=== PATIENT | female | born 1950 | race Two or more races ===

== ENCOUNTER 2024-03-22 12:54 | Inpatient (IN) | payer OTHER, MEDICAID ==
[~2024-03-22] VITALS: Ht 157.5 cm; Wt 78.2 kg
[2024-03-22 14:01] LABS: Basophils # (auto) 0 10 ^3/uL (0-0.2); Basophils % (auto) 1.1 % (0.0-2.0); Eosinophils # (auto) 0.3 10 ^3/uL (0-0.8); Eosinophils % (auto) 8.2 % (0.0-7.0); Hematocrit 34.4 % (36.0-46.0); Hemoglobin 11.7 g/dL (12.2-16.2); Lymphocytes # (auto) 1.4 10 ^3/uL (0.4-5.4); Lymphocytes % (auto) 43.9 % (10.0-50.0); Mean Corpuscular Hemoglobin 34.1 pg (28.0-32.0); Mean Corpuscular Hgb Conc. 34.1 g/dL (32.0-36.0); Mean Corpuscular Volume 99.9 fL (80.0-100.0); Monocytes # (auto) 0.4 10 ^3/uL (0-1.3); Monocytes % (auto) 13.4 % (0.0-12.0); Neutrophils # (auto) 1.1 10 ^3/uL (1.6-8.6); Neutrophils % (auto) 33.4 % (37.0-80.0); Nucleated Red Blood Cells % 0.1 %; Red Blood Cells 3.45 10^6/uL (4.0-5.20); White Blood Cell 3.3 10^3/uL (4.4-10.8)
[2024-03-22 14:20] LABS: Alanine Aminotransferase 17 U/L (7-40); Albumin 3.5 g/dL (3.2-4.8); Alkaline Phosphatase 92 U/L (46-116); Anion Gap 7 (5-15); Aspartate Aminotransferase 23 U/L (13-40); BUN/Creatinine Ratio 12.2 (10.0-20.0); Blood Urea Nitrogen 9 mg/dL (9-23); Calcium 8.7 mg/dL (8.7-10.4); Carbon Dioxide 23 mmol/L (20-30); Chloride 114 mmol/L (98-107); Glucose 103 mg/dL (74-106); INR 1.12 (0.9-1.15); Partial Thromboplastin Time 29.6 SEC (24.5-34.5); Potassium 3.6 mmol/L (3.5-5.1); Prothrombin Time 11.8 sec (9.3-11.8); Sodium 144 mmol/L (136-145)
[2024-03-22 14:21] LABS: Bilirubin, Total 0.4 mg/dL (0.2-1.0); Total Protein 5.9 g/dL (5.7-8.2)
[2024-03-22] MEDS ORDERED: ONDANSETRON HCL 4 MG/2 ML VIAL IV PRN (17:00)
[2024-03-22] MEDS ORDERED: DOCUSATE SOD 100 MG CAP PO PRN (17:00)
[2024-03-22 17:04] VITALS: PULSE 56; RESP 16; O2SAT 99
[2024-03-22] MEDS: HYDROcodone-ACET 5/325MG TAB PO PRN (17:59)
[2024-03-22] MEDS: HEPARIN DRIP/D5W 100UNITS/ML 250 ML IV SCH (18:33)
[2024-03-22 18:41] LABS: Urine Bacteria None Seen /hpf (None Seen)
[2024-03-22 18:44] VITALS: PULSE 54; RESP 60; O2SAT 98
[2024-03-22] MEDS: CLOPIDOGREL BISULFATE 75 MG TAB PO ONE (18:54)
[2024-03-22 18:57] LABS: Urine Blood Negative /uL (Negative); Urine Clarity Clear (Clear); Urine Color Yellow (Yellow); Urine Mucus FEW (None Seen); Urine Protein, UAD TRACE (Negative); Urine Specific Gravity 1.028 (1.001-1.035); Urine Urobilinogen Normal (Negative); Urine WBC 4 /hpf (0 - 5); Urine pH 7.5 (5.0-9.0)
[2024-03-22 19:12] LABS: Basophils # (auto) 0 10 ^3/uL (0-0.2); Eosinophils # (auto) 0.3 10 ^3/uL (0-0.8); Hemoglobin 12.6 g/dL (12.2-16.2); Monocytes # (auto) 0.4 10 ^3/uL (0-1.3)
[2024-03-22 19:14] LABS: Eosinophils % (auto) 7.4 % (0.0-7.0); Lymphocytes % (auto) 54.7 % (10.0-50.0); Mean Corpuscular Hemoglobin 34.5 pg (28.0-32.0); Mean Corpuscular Hgb Conc. 34.1 g/dL (32.0-36.0); Mean Corpuscular Volume 101.2 fL (80.0-100.0); Monocytes % (auto) 10.8 % (0.0-12.0); Neutrophils % (auto) 26.1 % (37.0-80.0); Nucleated Red Blood Cells % 0.3 %; Red Blood Cells 3.66 10^6/uL (4.0-5.20); White Blood Cell 3.7 10^3/uL (4.4-10.8)
[2024-03-22 19:30] VITALS: PULSE 58; RESP 13; O2SAT 97
[2024-03-22 22:29] VITALS: RESP 18; O2SAT 96
[2024-03-22] MEDS: SODIUM CHLOR 0.9% PF (SALINE LOCK) 10ML VIAL/SYR IV SCH (22:40)
[2024-03-22 23:30] VITALS: BP 151/72; PULSE 66; RESP 17; TEMP 98.6; O2SAT 98
[2024-03-23] VITALS (9 sets, daily range): BP systolic 99–121; BP diastolic 40–78; PULSE 53–70; RESP 15–20; TEMP 97–98.7; O2SAT 95–100
[2024-03-23] MEDS: ASPirin-EC 81 mg tab PO SCH (08:35)
[2024-03-23] MEDS: HYDROmorphone HCL 2 MG/ML VL/or syr IV PRN (08:38)
[2024-03-23] MEDS ORDERED: ENOXAPARIN SOD 40 MG/0.4 ML SYRINGE SC SCH (10:00)
[2024-03-23] MEDS ORDERED: PHEN1CAP38 PO (11:32)
[2024-03-23] MEDS ORDERED: KEP500T PO (11:32)
[2024-03-23] MEDS ORDERED: SIMV20TA20 PO (11:32)
[2024-03-23] MEDS ORDERED: ACET-1881 PO (11:32)
[2024-03-23] MEDS ORDERED: TOPI25CA5 PO (11:32)
[2024-03-23] MEDS ORDERED: CHOL20007 OR (11:32)
[2024-03-23] MEDS ORDERED: IBUP-1456 PO (11:32)
[2024-03-23] MEDS ORDERED: DICL1GEL72 EX (11:32)
[2024-03-23] MEDS ORDERED: GABA-339 PO (11:32)
[2024-03-23] MEDS ORDERED: APIX2.5T PO ×2 (11:32→11:42)
[2024-03-23] MEDS ORDERED: ACETAMINOPHEN 325 MG TAB PO PRN (12:00)
[2024-03-23] MEDS ORDERED: ERGOCALCIFEROL 50,000 UNIT(1.25MG) CAP PO SCH (15:00)
[2024-03-23] MEDS: ATORVASTATIN 20 MG TAB PO SCH (22:00)
[2024-03-23] MEDS: TOPIRAMATE 25 MG TAB PO SCH (22:02)
[2024-03-23] MEDS: APIXABAN 2.5 MG TAB PO SCH (22:02)
[2024-03-23] MEDS: levETIRAcetam 500 MG TAB PO SCH (22:03)
[2024-03-24 01:00] VITALS: BP 101/42; PULSE 73; RESP 20; TEMP 98; O2SAT 95
[2024-03-24 05:00] VITALS: BP 81/62; PULSE 60; RESP 22; TEMP 97.6; O2SAT 100
[2024-03-24] MEDS: GABAPENTIN 300 MG CAP PO SCH (08:28)
[2024-03-24] MEDS: PHENYTOIN SODIUM 100 MG CAP PO SCH (08:29)
[2024-03-24 09:29] VITALS: BP 144/72; PULSE 61; RESP 20; TEMP 97.9; O2SAT 98
[2024-03-24 13:01] VITALS: BP 117/59; PULSE 58; RESP 20; TEMP 98.3; O2SAT 94
[2024-03-24 16:38] VITALS: BP 123/68; PULSE 63; RESP 18; TEMP 98.3; O2SAT 96
[2024-03-24 21:00] VITALS: BP 119/62; PULSE 58; RESP 18; TEMP 97.4; O2SAT 95
[2024-03-25 05:00] VITALS: BP 100/52; PULSE 57; RESP 16; TEMP 97.7; O2SAT 93
[2024-03-25 08:28] VITALS: BP_SYST 105; BP_SYST 97; BP_DIAS 31; BP_DIAS 54; PULSE 57; RESP 20; TEMP 98.3; O2SAT 95
[2024-03-25 12:36] VITALS: BP 128/63; PULSE 58; RESP 20; TEMP 98; O2SAT 98
[2024-03-25 17:08] VITALS: BP 123/67; PULSE 67; RESP 20; TEMP 98.2; O2SAT 96
[2024-03-25 20:00] VITALS: O2SAT 97
[2024-03-25 21:00] VITALS: BP 109/57; PULSE 66; RESP 17; TEMP 97.6; O2SAT 97
[2024-03-26 01:00] VITALS: BP 127/50; PULSE 69; RESP 18; TEMP 97.7; O2SAT 98
[2024-03-26 05:00] VITALS: BP 103/49; PULSE 65; RESP 16; TEMP 98; O2SAT 96
[2024-03-26 09:00] VITALS: BP 118/52; PULSE 69; RESP 18; TEMP 97.5; O2SAT 98
[2024-03-26 10:24] LABS: Basophils # (auto) 0 10 ^3/uL (0-0.2); Eosinophils # (auto) 0.2 10 ^3/uL (0-0.8); Hemoglobin 12.7 g/dL (12.2-16.2); Lymphocytes # (auto) 1.4 10 ^3/uL (0.4-5.4); Lymphocytes % (auto) 33.8 % (10.0-50.0)
[2024-03-26 10:27] LABS: Basophils % (auto) 0.5 % (0.0-2.0); Eosinophils % (auto) 4.9 % (0.0-7.0); Hematocrit 37.1 % (36.0-46.0); Mean Corpuscular Hemoglobin 34.6 pg (28.0-32.0); Mean Corpuscular Hgb Conc. 34.2 g/dL (32.0-36.0); Mean Corpuscular Volume 101.2 fL (80.0-100.0); Monocytes # (auto) 0.5 10 ^3/uL (0-1.3); Monocytes % (auto) 12.8 % (0.0-12.0); Nucleated Red Blood Cells % 0.1 %; Red Blood Cells 3.67 10^6/uL (4.0-5.20); White Blood Cell 4.2 10^3/uL (4.4-10.8)
[2024-03-26 10:38] LABS: Anion Gap 6 (5-15); Carbon Dioxide 26 mmol/L (20-30); Chloride 111 mmol/L (98-107); Potassium 3.9 mmol/L (3.5-5.1); Sodium 143 mmol/L (136-145)
[2024-03-26 10:39] LABS: Calcium 8.8 mg/dL (8.7-10.4)
[2024-03-26 10:44] LABS: Blood Urea Nitrogen 8 mg/dL (9-23); Glucose 134 mg/dL (74-106)
[2024-03-26 13:00] VITALS: BP 127/66; PULSE 65; RESP 18; TEMP 97.9; O2SAT 98
[2024-03-26 16:32] VITALS: TEMP 36.6
[2024-03-26 16:56] VITALS: TEMP 98
[2024-03-26] MEDS: ACETAMINOPHEN 325 MG TAB PO PRN (16:56)
== END 2024-03-26 17:23 | disposition home health service (06) | DRG 300 ==
LOC: EDBD 12:54 → ER 12:54 → WEST WING 16:52 → OVERFLOW 16:52 → WEST WING 22:06
PROVIDERS: ADMIT Internal Medicine; ATTEND Family Medicine
DX: I73.9 Peripheral vascular disease, unspecified (principal); D61.818 Other pancytopenia; G40.909 Epilepsy, unspecified, not intractable, without status epilepticus; Z88.0 Allergy status to penicillin; Z86.718 Personal history of other venous thrombosis and embolism
CPT/HCPCS: 36415; 73590; 80048; 80053; 80185; 81001; 83880; 85025; 85610; 85730; 93925; 93970; 97110; 97116; 97163; G0378; J2405

== ENCOUNTER 2024-05-02 08:28 | Emergency (ER) | payer OTHER, MEDICAID ==
[~2024-05-02] VITALS: Ht 152.4 cm; Wt 74.9 kg
[~2024-05-02 08:28] MED LIST: ACET-1881 PO; APIX2.5T PO; CHOL20007 OR; DICL1GEL72 EX; GABA-339 PO; IBUP-1456 PO; KEP500T PO; PHEN1CAP38 PO; SIMV20TA20 PO; TOPI25CA5 PO
[2024-05-02 09:46] VITALS: BP 99/68; PULSE 66; RESP 16; TEMP 97.4; O2SAT 96
[2024-05-02] MEDS: diphenhdrAMINE HCL 25 MG CAP PO ONE (10:21)
[2024-05-02] MEDS ORDERED: CEPH500C PO (10:45)
== END 2024-05-02 11:00 | disposition home or self-care (01) ==
LOC: ER 08:28
DX: L03.115 Cellulitis of right lower limb (principal); G40.909 Epilepsy, unspecified, not intractable, without status epilepticus; E78.5 Hyperlipidemia, unspecified; Z88.0 Allergy status to penicillin; Z79.899 Other long term (current) drug therapy
CPT/HCPCS: 93971

== ENCOUNTER 2024-05-25 13:39 | Inpatient (IN) | payer OTHER, MEDICAID ==
[~2024-05-25] VITALS: Ht 154.9 cm; Wt 75.0 kg
[~2024-05-25 13:39] MED LIST changes: +CEPH500C PO
[2024-05-25 16:26] LABS: Basophils # (auto) 0 10 ^3/uL (0-0.2); Eosinophils # (auto) 0.3 10 ^3/uL (0-0.8); Mean Corpuscular Hgb Conc. 33.6 g/dL (32.0-36.0); Monocytes # (auto) 0.6 10 ^3/uL (0-1.3); Neutrophils # (auto) 1.4 10 ^3/uL (1.6-8.6)
[2024-05-25 16:28] LABS: Eosinophils % (auto) 6.8 % (0.0-7.0); Hemoglobin 13.1 g/dL (12.2-16.2); Lymphocytes % (auto) 46.8 % (10.0-50.0); Mean Corpuscular Hemoglobin 34.9 pg (28.0-32.0); Mean Corpuscular Volume 103.7 fL (80.0-100.0); Monocytes % (auto) 13.1 % (0.0-12.0); Neutrophils % (auto) 32.3 % (37.0-80.0); Nucleated Red Blood Cells % 0.1 %; Platelet Count (auto) 168 10^3/uL (140-450); Red Blood Cells 3.76 10^6/uL (4.0-5.20); Red Cell Distribution Width 14.3 % (11.8-14.3); White Blood Cell 4.2 10^3/uL (4.4-10.8)
[2024-05-25 16:32] LABS: Urine Bacteria None Seen /hpf (None Seen)
[2024-05-25 16:43] LABS: Chloride 111 mmol/L (98-107); Potassium 3.4 mmol/L (3.5-5.1); Sodium 142 mmol/L (136-145)
[2024-05-25 16:44] LABS: Anion Gap 8 (5-15); Carbon Dioxide 23 mmol/L (20-31)
[2024-05-25 16:50] LABS: BUN/Creatinine Ratio 11.8 (10.0-20.0); Blood Urea Nitrogen 9 mg/dL (9-23); Glucose 89 mg/dL (74-106)
[2024-05-25 17:18] LABS: Urine Blood Negative /uL (Negative); Urine Clarity Clear (Clear); Urine Color Yellow (Yellow); Urine Mucus FEW (None Seen); Urine Protein, UAD Negative (Negative); Urine Specific Gravity 1.022 (1.001-1.035); Urine Urobilinogen Normal (Negative); Urine WBC 1 /hpf (0 - 5); Urine pH 5.5 (5.0-9.0)
[2024-05-25 20:19] VITALS: PULSE 68; RESP 16; O2SAT 99
[2024-05-25] MEDS: cefTRIAXone 1GM/50ML D5W 50 ML IV ONE (21:00)
[2024-05-25] MEDS: CLINDAMYCIN 600MG IV 50 ML IV ONE (21:47)
[2024-05-25 23:57] VITALS: PULSE 65; RESP 11; O2SAT 98
[2024-05-26] MEDS: POTASSIUM CHL 20 Meq TABLET PO ONE (02:32)
[2024-05-26 03:09] LABS: Basophils # (auto) 0 10 ^3/uL (0-0.2); Basophils % (auto) 1.1 % (0.0-2.0); Eosinophils # (auto) 0.3 10 ^3/uL (0-0.8); Lymphocytes # (auto) 1.8 10 ^3/uL (0.4-5.4); Monocytes # (auto) 0.5 10 ^3/uL (0-1.3); Neutrophils # (auto) 1.1 10 ^3/uL (1.6-8.6); White Blood Cell 3.7 10^3/uL (4.4-10.8)
[2024-05-26 03:11] LABS: Eosinophils % (auto) 7.4 % (0.0-7.0); Hematocrit 34.9 % (36.0-46.0); Lymphocytes % (auto) 49.8 % (10.0-50.0); Mean Corpuscular Hemoglobin 35.3 pg (28.0-32.0); Mean Corpuscular Hgb Conc. 34.4 g/dL (32.0-36.0); Mean Corpuscular Volume 102.6 fL (80.0-100.0); Neutrophils % (auto) 28.7 % (37.0-80.0); Nucleated Red Blood Cells % 0.2 %; Platelet Count (auto) 144 10^3/uL (140-450); Red Cell Distribution Width 14.2 % (11.8-14.3)
[2024-05-26] MEDS ORDERED: CLINDAMYCIN 600MG IV 50 ML IV ONE (03:30)
[2024-05-26 03:56] LABS: Alanine Aminotransferase 14 U/L (7-40); Albumin 3.5 g/dL (3.2-4.8); Alkaline Phosphatase 106 U/L (46-116); Anion Gap 3 (5-15); Aspartate Aminotransferase 26 U/L (13-40); BUN/Creatinine Ratio 11.3 (10.0-20.0); Blood Urea Nitrogen 8 mg/dL (9-23); Calcium 8.9 mg/dL (8.7-10.4); Carbon Dioxide 25 mmol/L (20-31); Chloride 113 mmol/L (98-107); Glucose 85 mg/dL (74-106); Potassium 3.3 mmol/L (3.5-5.1); Sodium 141 mmol/L (136-145)
[2024-05-26 03:57] LABS: Total Protein 6.2 g/dL (5.7-8.2)
[2024-05-26 04:13] LABS: Bilirubin, Total 0.6 mg/dL (0.2-1.0)
[2024-05-26] MEDS: CLINDAMYCIN 300MG IV 50 ML IV ONE (06:15)
[2024-05-26] MEDS ORDERED: LEVE750T3 PO (06:20)
[2024-05-26] MEDS ORDERED: GABA-1250 PO (06:20)
[2024-05-26] MEDS ORDERED: TOPI25TA84 PO (06:20)
[2024-05-26] MEDS: cefTRIAXone 1GM/50ML D5W 50 ML IV ONE (06:35)
[2024-05-26] MEDS: APIXABAN 2.5 MG TAB PO SCH (10:11)
[2024-05-26] MEDS: TOPIRAMATE 25 MG TAB PO SCH (10:11)
[2024-05-26] MEDS: levETIRAcetam 500 MG TAB PO SCH (10:11)
[2024-05-26 12:46] VITALS: PULSE 65; RESP 16; O2SAT 96
[2024-05-26 13:00] VITALS: BP 133/61; PULSE 59; RESP 20; TEMP 98.7; O2SAT 93
[2024-05-26 13:59] VITALS: BP 122/57; PULSE 65; RESP 16; TEMP 97.7; O2SAT 96
[2024-05-26] MEDS: CLINDAMYCIN 600MG IV 50 ML IV ONE (15:53)
[2024-05-26 17:00] VITALS: BP 97/59; PULSE 66; RESP 14; TEMP 97.5; O2SAT 97
[2024-05-26 21:00] VITALS: BP 141/69; PULSE 72; RESP 18; TEMP 97.5; O2SAT 95
[2024-05-26] MEDS: CLINDAMYCIN 600MG IV 50 ML IV SCH (21:44)
[2024-05-27] VITALS (7 sets, daily range): BP systolic 105–129; BP diastolic 46–67; PULSE 65–70; RESP 15–18; TEMP 97.7–98.8; O2SAT 94–96
[2024-05-27] MEDS: levETIRAcetam 500 MG TAB PO SCH (10:32)
[2024-05-27] MEDS: POTASSIUM EFFERVESENT TAB 25 MEQ PO ONE (14:22)
[2024-05-27] MEDS: HYDROcodone-ACET 5/325MG TAB PO PRN (17:43)
[2024-05-28 01:02] VITALS: BP 120/79; PULSE 65; RESP 18; TEMP 98.6; O2SAT 97
[2024-05-28 05:00] VITALS: BP 124/59; PULSE 64; RESP 18; TEMP 97.8; O2SAT 95
[2024-05-28 08:00] VITALS: BP 122/70; PULSE 71; PULSE 78; RESP 16; RESP 20; TEMP 97.9; O2SAT 94; O2SAT 95
[2024-05-28] MEDS ORDERED: HYDR-4902 PO (11:10)
[2024-05-28] MEDS ORDERED: CLIN1CAP70 PO (11:10)
[2024-05-28 12:00] VITALS: BP 107/70; PULSE 64; RESP 20; TEMP 97.7; O2SAT 98
== END 2024-05-28 13:50 | disposition home or self-care (01) | DRG 603 ==
LOC: ER 13:39 → OVERFLOW 05-26 02:17 → WEST WING 05-26 11:45
PROVIDERS: ADMIT Internal Medicine; ATTEND Family Medicine
DX: L03.115 Cellulitis of right lower limb (principal); Z68.41 Body mass index [BMI] 40.0-44.9, adult; F41.9 Anxiety disorder, unspecified; I50.9 Heart failure, unspecified; E66.01 Morbid (severe) obesity due to excess calories; R56.9 Unspecified convulsions; E87.6 Hypokalemia; Z79.01 Long term (current) use of anticoagulants; Z79.899 Other long term (current) drug therapy
CPT/HCPCS: 36415; 73560; 73700; 80048; 80053; 81001; 82306; 82607; 83605; 83880; 84443; 85025; 93971; G0378; J3490

== ENCOUNTER 2024-07-31 09:29 | Emergency (ER) | payer OTHER, MEDICAID ==
[~2024-07-31] VITALS: Ht 154.9 cm; Wt 73.5 kg
[~2024-07-31 09:29] MED LIST changes: -APIX2.5T PO; -CEPH500C PO; +CLIN1CAP70 PO; +GABA-1250 PO; -GABA-339 PO; +HYDR-4902 PO; -KEP500T PO; +LEVE750T3 PO; -SIMV20TA20 PO; -TOPI25CA5 PO; +TOPI25TA84 PO
--- NOTE | 2024-07-31 09:54 | ED.PDOC ---
History of Present Illness HPI Comments This is a 73-year-old female who comes in with chief complaint of abdominal pain. The patient was also complaining of some dysuria as well as some mild nausea. The patient denies any fever or chills. She states that she has never had similar symptoms in the past. She denies any hematuria at this time. The patient was able to ambulate into the emergency department's without any difficulty. Chief Complaint: Abdominal Pain Time Seen by MD: 09:44 Primary Care Provider: [place] Reviewed Notes: Nurses Notes, Medications, Allergies (Allergies listed above) Allergies: Coded Allergies: Penicillins (Verified Allergy, Severe, RASH, 03/23/24) Simvastatin (Verified Allergy, Intermediate, URTICARIA, HIVES, INSOMNIA, 05/26/24) Home Meds Active Scripts Ondansetron Odt 4MG Tab (ZOFRAN PO) 4 Mg Tb, 4 MG PO Q8HP PRN for 5 Days, #15 TAB ODT TAB-DISSOLVE IN MOUTH, THEN SWALLOW Prov:ROSA ISELA BEDOYA MD 07/31/24 Nitrofurantoin Monohydrate Mac (Macrobid) 100 Mg Cap, 100 MG PO BID for 7 Days, #14 CAP Prov:ROSA ISELA BEDOYA MD 07/31/24 Hydrocodone-Acetaminophen (Hydrocodone Bitartrate/AC 5-325 mg) 1 Tab Tab, 1 TAB PO QID PRN, #30 TAB Prov:ERIK MEADOWS MD 05/28/24 Clindamycin Hcl (Clindamycin Hcl) 300 Mg Cap, 1 CAP PO TID, #30 CAP Prov:ERIK MEADOWS MD 05/28/24 Reported Medications Gabapentin (Gabapentin) 300 Mg Cap, PO for NUEROPATHY 05/26/24 Topiramate (Topiramate) 25 Mg Tab, 1 TAB PO BID for EPILEPSY 05/26/24 Levetiracetam (Levetiracetam) 750 Mg Tab, 2 TAB PO BID for EPILEPSY 05/26/24 Diclofenac Sodium (Topical) (Arthritis Pain Reliever) 1 % Gel, 1 % EX BIDP, GEL 03/23/24 Ibuprofen (Ibuprofen) 800 Mg Tab, 800 MG PO TIDPRN for PAIN, MG 03/23/24 Acetaminophen (Acetaminophen) 325 Mg Tab, 650 MG PO Q4HPRN PRN for MILD PAIN for 30 Days, MG 0 Refills 03/23/24 Cholecalciferol (VITAMIN D3) 2,000 Unit Tab, 39087 UNIT OR QWEEKLY, TAB 03/23/24 Phenytoin Sodium (DILANTIN CAPSULE) 100 Mg Cp, 200 MG PO for EPILEPSY, CAP 03/23/24 Information Source: Patient Mode of Arrival: Ambulatory Severity: Mild Timing: Days Duration: Since onset Prehospital treatment: None Location: Lower abdominal pain with the nausea and dysuria Associated signs and symptoms The patient denies any fever or chills Past Medical History PAST MEDICAL HISTORY: High Lipids, Seizures Past Medical History (Other): Right DVT Surgical History (Other): Right leg procedure NEON GLASS BLOWER History: Denies all NEON GLASS BLOWER Hx Family History Family History: Reviewed,noncontributory to illness Social History Smoker: Non-Smoker Alcohol: Denies ETOH Use Drugs: Denies Drug Use Lives In: Home Constitutional: denies: chills, diaphoresis, fatigue, fever, malaise, sweats, weakness, others EENTM: denies: blurred vision, double vision, ear bleeding, ear discharge, ear drainage, ear pain, ear ringing, eye pain, eye redness, hearing loss, mouth pain, mouth swelling, nasal discharge, nose bleeding, nose congestion, nose pain, photophobia, tearing, throat pain, throat swelling, voice changes, others Respiratory: denies: cough, hemoptysis, orthopnea, SOB at rest, shortness of breath, SOB with excertion, stridor, wheezing, others Cardiovascular: denies: chest pain, dizzy spells, diaphoresis, Dyspnea on exertion, edema, irregular heart beat, left arm pain, lightheadedness, palpitations, PND, syncope, others Gastrointestinal: reports: abdominal pain, nausea; denies: abdomen distended, blood streaked bowels, constipated, diarrhea, dysphagia, difficulty swallowing, hematemesis, melena, poor appetite, poor fluid intake, rectal bleeding, rectal pain, vomiting, others Genitourinary: reports: dysuria; denies: abnormal vagina bleeding, burning, dyspareunia, flank pain, frequency, hematuria, incontinence, pain, , vagina discharge, urgency, others Neurological: denies: dizziness, fainting, headache, left sided numbness, left sided weakness, numbness, paresthesia, pre-existing deficit, right sided numbness, right sided weakness, seizure, speech problems, tingling, tremors, weakness, others Musculoskeletal: denies: back pain, gout, joint pain, joint swelling, muscle pain, muscle stiffness, neck pain, others Integumetry: denies: bruises, change in color, change in hair/nails, dryness, laceration, lesions, lumps, rash, wounds, others Allergic/Immunocompromised: denies: Difficulty Healing, Frequent Infections, Hives, Itching, others Hematologic/Lymphatic: denies: anemia, blood clots, easy bleeding, easy bruising, swollen glands, others Endocrine: denies: excessive hunger, excessive sweating, excessive thirst, excessive urination, flushing, intolerance to cold, intolerance to heat, unexplained weight gain, unexplained weight loss, others Psychiatric: denies: anxiety, bipolar disorder, depression, hopeless, panic disorder, schizophrenia, sleepless, suicidal, others Physical Exam General Appearance: No Apparent Distress HEENT: Normal ENT Inspection, Pharynx Normal, TMs Normal Neck: Full Range of Motion, Non-Tender, Normal, Normal Inspection Respiratory: Chest Non-Tender, Lungs Clear, No Accessory Muscle Use, No Respiratory Distress, Normal Breath Sounds Cardiovascular: No Edema, No JVD, No Murmur, No Gallop, Normal Peripheral Pulses, Regular Rate/Rhythm Breast Exam: Deferred Gastrointestinal: No Organomegaly, No Pulsatile Mass, Normal Bowel Sounds, Soft, Suprapubic, Tenderness Genitalia: Deferred Pelvic: Deferred Rectal: Deferred Extremities: No calf tenderness, Normal capillary refill, Normal inspection, Normal range of motion, Non-tender, No pedal edema Musculoskeletal : Apperance: Normal Neurologic: Alert, drilling fluids specialist II-XII nml as Tested, No Motor Deficits, Normal Affect, Normal Mood, No Sensory Deficits Cerebellar Function: Normal Reflexes: Normal Skin: Dry, Normal Color, Warm Lymphatic: No Adenopathy Was a procedure done? Was a procedure done?: No Differential Dx Considerations may include: Sepsis, UTI, kidney stones X-Ray, Labs, Meds, VS Vital Signs Date Time Temp Pulse Resp B/P (MAP) Pulse Ox O2 Delivery O2 Flow Rate FiO2 07/31/24 11:47 98.3 72 14 145/72 (96) 99 98.3 07/31/24 09:59 98.6 77 16 118/78 (91) 97 Lab Test 07/31/24 13:36 07/31/24 10:08 Range/Units Urine Color Yellow Yellow Urine Clarity Clear Clear Urine pH 7.0 5.0-9.0 Urine Specific [place] 1.021 1.001-1.035 Urine Protein Trace H Negative Urine Ketones Negative Negative Urine Blood Negative Negative /uL Urine Nitrite Negative Negative Urine Bilirubin Negative Negative Urine Urobilinogen Normal Negative mg/dL Urine Leukocyte Esterase 2+ Negative /uL Urine RBC 3 0 - 4 /hpf Urine WBC 38 0 - 5 /hpf Urine Squamous Epithelial Cells Few <5 /hpf Urine Bacteria None seen None Seen /hpf Urine Glucose Normal Normal mg/dL White Blood Count 4.4 4.4-10.8 10^3/uL Red Blood Count 4.02 4.0-5.20 10^6/uL Hemoglobin 13.6 12.2-16.2 g/dL Hematocrit 41.0 36.0-46.0 % Mean Corpuscular Volume 102.1 H 80.0-100.0 fL Mean Corpuscular Hemoglobin 33.9 H 28.0-32.0 pg Mean Corpuscular Hemoglobin Concent 33.2 32.0-36.0 g/dL Red Cell Distribution Width 13.5 11.8-14.3 % Platelet Count 158 140-450 10^3/uL Mean Platelet Volume 8.8 6.9-10.8 fL Neutrophils (%) (Auto) 68.6 37.0-80.0 % Lymphocytes (%) (Auto) 21.6 10.0-50.0 % Monocytes (%) (Auto) 7.6 0.0-12.0 % Eosinophils (%) (Auto) 1.4 0.0-7.0 % Basophils (%) (Auto) 0.8 0.0-2.0 % Neutrophils # (Auto) 3.0 1.6-8.6 10 ^3/uL Lymphocytes # (Auto) 1.0 0.4-5.4 10 ^3/uL Monocytes # (Auto) 0.3 0-1.3 10 ^3/uL Eosinophils # (Auto) 0.1 0-0.8 10 ^3/uL Basophils # (Auto) 0 0-0.2 10 ^3/uL Nucleated Red Blood Cells 0.1 % Sodium Level 143 136-145 mmol/L Potassium Level 4.0 3.5-5.1 mmol/L Chloride Level 110 H 98-107 mmol/L Carbon Dioxide Level 26 20-31 mmol/L Anion Gap 7 5-15 Blood Urea Nitrogen 7 L 9-23 mg/dL Creatinine 0.73 0.550-1.02 mg/dL Glomerular Filtration Rate Calc 86 >90 mL/min BUN/Creatinine Ratio 9.6 L 10.0-20.0 Serum Glucose 94 74-106 mg/dL Calcium Level 9.3 8.7-10.4 mg/dL The urine test is positive for UTI The patient was given Macrobid The CBC and chemistry panel are within normal limits The patient will follow up with the primary care doctor The patient will return to the emergency department's the condition worsens. Time of 1ST Reevaluation: 09:53 Reevaluation 1ST: Unchanged Patient Education/Counseling: Diagnosis, Treatment, Prognosis, Need For Follow Up Family Education/Counseling: No Family Present Departure 1 Departure Time of Disposition: 15:30 Impression: Primary Impression: UTI (urinary tract infection) Qualified Codes: N30.00 - Acute cystitis without hematuria Disposition: 01 HOME / SELF CARE / HOMELESS Condition: Fair e-Prescriptions Ondansetron Odt 4MG Tab (ZOFRAN PO) 4 Mg Tb 4 MG PO Q8HP PRN for 5 Days, #15 TAB ODT TAB-DISSOLVE IN MOUTH, THEN SWALLOW Prov: ROSA ISELA BEDOYA MD 07/31/24 Nitrofurantoin Monohydrate Mac (Macrobid) 100 Mg Cap 100 MG PO BID for 7 Days, #14 CAP Prov: ROSA ISELA BEDOYA MD 07/31/24 Discharged With: Self Critical Care Note Critical Care Time?: No Stability Stability form required: No Heart Score Heart Score: Heart Score Response (Comments) Value History N/A 0 EKG N/A 0 Age N/A 0 Risk Factors N/A 0 Troponin N/A 0 Total 0 ROSA ISELA BEDOYA MD Jul 31, 2024 09:53
[2024-07-31 10:34] LABS: Basophils # (auto) 0 10 ^3/uL (0-0.2); Eosinophils # (auto) 0.1 10 ^3/uL (0-0.8); Red Blood Cells 4.02 10^6/uL (4.0-5.20); White Blood Cell 4.4 10^3/uL (4.4-10.8)
[2024-07-31 10:36] LABS: Basophils % (auto) 0.8 % (0.0-2.0); Eosinophils % (auto) 1.4 % (0.0-7.0); Hemoglobin 13.6 g/dL (12.2-16.2); Lymphocytes % (auto) 21.6 % (10.0-50.0); Mean Corpuscular Hemoglobin 33.9 pg (28.0-32.0); Mean Corpuscular Hgb Conc. 33.2 g/dL (32.0-36.0); Mean Corpuscular Volume 102.1 fL (80.0-100.0); Monocytes # (auto) 0.3 10 ^3/uL (0-1.3); Monocytes % (auto) 7.6 % (0.0-12.0); Neutrophils % (auto) 68.6 % (37.0-80.0); Nucleated Red Blood Cells % 0.1 %; Platelet Count (auto) 158 10^3/uL (140-450); Red Cell Distribution Width 13.5 % (11.8-14.3)
[2024-07-31 10:46] LABS: Chloride 110 mmol/L (98-107); Sodium 143 mmol/L (136-145)
[2024-07-31 10:47] LABS: Anion Gap 7 (5-15); Calcium 9.3 mg/dL (8.7-10.4); Carbon Dioxide 26 mmol/L (20-31)
[2024-07-31 10:52] LABS: BUN/Creatinine Ratio 9.6 (10.0-20.0); Blood Urea Nitrogen 7 mg/dL (9-23); Glucose 94 mg/dL (74-106)
[2024-07-31 11:47] VITALS: BP 145/72; PULSE 72; RESP 14; TEMP 98.3; O2SAT 99
[2024-07-31 14:38] LABS: Urine Bacteria None Seen /hpf (None Seen)
[2024-07-31 15:03] LABS: Urine Blood Negative /uL (Negative); Urine Clarity Clear (Clear); Urine Color Yellow (Yellow); Urine Protein, UAD TRACE (Negative); Urine Specific Gravity 1.021 (1.001-1.035); Urine Urobilinogen Normal (Negative); Urine WBC 38 /hpf (0 - 5)
[2024-07-31] MEDS ORDERED: ZOFR4T PO (15:32)
[2024-07-31] MEDS ORDERED: NITR-87 PO (15:32)
[2024-07-31] MEDS: NITROFURANTOIN 100 mg CAP PO ONE (16:08)
== END 2024-07-31 16:15 | disposition home or self-care (01) ==
LOC: ER 09:29
DX: N39.0 Urinary tract infection, site not specified (principal); E78.5 Hyperlipidemia, unspecified; Z86.718 Personal history of other venous thrombosis and embolism; Z88.0 Allergy status to penicillin; Z98.890 Other specified postprocedural states; Z88.8 Allergy status to other drugs, medicaments and biological substances; Z79.899 Other long term (current) drug therapy
CPT/HCPCS: 36415; 80048; 81001; 85025

== ENCOUNTER 2024-11-11 13:30 | Emergency (ER) | payer OTHER, MEDICAID ==
[~2024-11-11] VITALS: Ht 152.4 cm; Wt 100.0 kg
[~2024-11-11 13:30] MED LIST changes: +NITR-87 PO; +ZOFR4T PO
--- NOTE | 2024-11-11 14:18 | ED.PDOC ---
Musculoskeletal HPI Comments 74 year old female presents to the ED with a chief complaint of LT knee pain onset today (11/11/24). Patient states she woke up today experiencing LT knee pain with swelling, worsens with movement. Patient experienced similar pain 3 years ago, was diagnosed with DVT, has been taking blood thinners since then. PMHx DVT, HLD, seizures. Denies fall, injury, dizziness, nausea, vomiting, chest pain, shortness of breath, fever, chills. No other symptoms or modifying factors present at this time. Chief Complaint: Lower Extremity Time Seen by MD: 14:09 Primary Care Provider: none Reviewed Notes: Nurses Notes, Medications, Allergies Allergies: Coded Allergies: Penicillins (Verified Allergy, Severe, RASH, 03/23/24) Simvastatin (Verified Allergy, Intermediate, URTICARIA, HIVES, INSOMNIA, 05/26/24) Home Meds Active Scripts Ondansetron Odt 4MG Tab (ZOFRAN PO) 4 Mg Tb, 4 MG PO Q8HP PRN for 5 Days, #15 TAB ODT TAB-DISSOLVE IN MOUTH, THEN SWALLOW Prov:ROSA ISELA BEDOYA MD 07/31/24 Nitrofurantoin Monohydrate Mac (Macrobid) 100 Mg Cap, 100 MG PO BID for 7 Days, #14 CAP Prov:ROSA ISELA BEDOYA MD 07/31/24 Hydrocodone-Acetaminophen (Hydrocodone Bitartrate/AC 5-325 mg) 1 Tab Tab, 1 TAB PO QID PRN, #30 TAB Prov:ERIK MEADOWS MD 05/28/24 Clindamycin Hcl (Clindamycin Hcl) 300 Mg Cap, 1 CAP PO TID, #30 CAP Prov:ERIK MEADOWS MD 05/28/24 Reported Medications Gabapentin (Gabapentin) 300 Mg Cap, PO for NUEROPATHY 05/26/24 Topiramate (Topiramate) 25 Mg Tab, 1 TAB PO BID for EPILEPSY 05/26/24 Levetiracetam (Levetiracetam) 750 Mg Tab, 2 TAB PO BID for EPILEPSY 05/26/24 Diclofenac Sodium (Topical) (Arthritis Pain Reliever) 1 % Gel, 1 % EX BIDP, GEL 03/23/24 Ibuprofen (Ibuprofen) 800 Mg Tab, 800 MG PO TIDPRN for PAIN, MG 03/23/24 Acetaminophen (Acetaminophen) 325 Mg Tab, 650 MG PO Q4HPRN PRN for MILD PAIN for 30 Days, MG 0 Refills 03/23/24 Cholecalciferol (VITAMIN D3) 2,000 Unit Tab, 37337 UNIT OR QWEEKLY, TAB 03/23/24 Phenytoin Sodium (DILANTIN CAPSULE) 100 Mg Cp, 200 MG PO for EPILEPSY, CAP 03/23/24 Information Source: Patient, Spouse Mode of Arrival: Ambulatory Location: Left Extremity Location: Knee Timing: Hours Prehospital treatment: None Severity: Moderate Bear Weight: Limited Pain: Moderate Circumstances: Spontaneous Onset of Symptoms: Spontaneous Symptoms: Swelling, Pain DVT Risk Factors: DVT Associated signs and symptoms: Knee pain (LT) Past Medical History PAST MEDICAL HISTORY: High Lipids, Seizures Past Medical History (Other): DVT Surgical History (Other): bilateral leg surgery ADOLESCENT SPECIALIST History: Denies all ADOLESCENT SPECIALIST Hx Family History Family History: Reviewed,noncontributory to illness Social History Smoker: Non-Smoker Alcohol: Denies ETOH Use Drugs: Denies Drug Use Lives In: Home Constitutional: denies: chills, diaphoresis, fatigue, fever, malaise, sweats, weakness, others EENTM: denies: blurred vision, double vision, ear bleeding, ear discharge, ear drainage, ear pain, ear ringing, eye pain, eye redness, hearing loss, mouth pain, mouth swelling, nasal discharge, nose bleeding, nose congestion, nose pain, photophobia, tearing, throat pain, throat swelling, voice changes, others Respiratory: denies: cough, hemoptysis, orthopnea, SOB at rest, shortness of breath, SOB with excertion, stridor, wheezing, others Cardiovascular: denies: chest pain, dizzy spells, diaphoresis, Dyspnea on exertion, edema, irregular heart beat, left arm pain, lightheadedness, palpitations, PND, syncope, others Gastrointestinal: denies: abdomen distended, abdominal pain, blood streaked bowels, constipated, diarrhea, dysphagia, difficulty swallowing, hematemesis, melena, nausea, poor appetite, poor fluid intake, rectal bleeding, rectal pain, vomiting, others Genitourinary: denies: abnormal vagina bleeding, burning, dyspareunia, dysuria, flank pain, frequency, hematuria, incontinence, pain, , vagina discharge, urgency, others Neurological: denies: dizziness, fainting, headache, left sided numbness, left sided weakness, numbness, paresthesia, pre-existing deficit, right sided numbne ss, right sided weakness, seizure, speech problems, tingling, tremors, weakness, others Musculoskeletal: reports: others (LT knee pain); denies: back pain, gout, joint pain, joint swelling, muscle pain, muscle stiffness, neck pain Integumetry: denies: bruises, change in color, change in hair/nails, dryness, laceration, lesions, lumps, rash, wounds, others Allergic/Immunocompromised: denies: Difficulty Healing, Frequent Infections, Hives, Itching, others Hematologic/Lymphatic: denies: anemia, blood clots, easy bleeding, easy b ruising, swollen glands, others Endocrine: denies: excessive hunger, excessive sweating, excessive thirst, excessive urination, flushing, intolerance to cold, intolerance to heat, unexplained weight gain, unexplained weight loss, others Psychiatric: denies: anxiety, bipolar disorder, depression, hopeless, panic disorder, schizophrenia, sleepless, suicidal, others All Other Systems: Reviewed and Negative Physical Exam General Appearance: No Apparent Distress HEENT: Normal ENT Inspection, Pharynx Normal, TMs Normal Neck: Full Range of Motion, Non-Tender, Normal, Normal Inspection Respiratory: Chest Non-Tender, Lungs Clear, No Accessory Muscle Use, No Respiratory Distress, Normal Breath Sounds Cardiovascular: No Edema, No JVD, No Murmur, No Gallop, Normal Peripheral Pulses, Regular Rate/Rhythm Breast Exam: Deferred Gastrointestinal: No Organomegaly, Non Tender, No Pulsatile Mass, Normal Bowel Sounds, Soft Genitalia: Deferred Pelvic: Deferred Rectal: Deferred Extremities: No calf tenderness, Normal capillary refill, No pedal edema, Tender (Minimal tenderness to the left inferior knee aspect) Musculoskeletal : Location: Left Extremity Location: Knee Apperance: Tenderness: Mild Neurologic: Alert, boring machine operator helper II-XII nml as Tested, No Motor Deficits, Normal Affect, Normal Mood, No Sensory Deficits Cerebellar Function: Normal Reflexes: Normal Skin: Dry, Normal Color, Warm Lymphatic: No Adenopathy Was a procedure done? Was a procedure done?: No Differential Diagnosis EXT Differential Diagnosis: Cellulitis, Fracture, Sprain X-Ray, Labs, Meds, VS Vital Signs Date Time Temp Pulse Resp B/P (MAP) Pulse Ox O2 Delivery O2 Flow Rate FiO2 11/11/24 13:45 98.8 71 18 116/57 (76) 98 98.8 PROCEDURE(s): LKNE3 - L KNEE 3V XRAY Impression: 3 views of the left knee. There is no evidence of an acute fracture, dislocation, blastic, or lytic lesions. No radiopaque foreign bodies. No joint effusion or superficial soft tissue abnormalities. EDURE(s): BLDVT - BiLat Lower DVT Impression: 1. No right or left femoropopliteal venous thrombosis. 2. 5.76 x 3.13 cust RT popliteal fossa. At this time, the patient was discharged and will follow up with the primary care doctor The patient will follow up with the primary care doctor The patient will return to the emergency department's the condition worsens Images Reviewed?: Images reviewed and evaluated by me Time of 1ST Reevaluation: 14:39 Reevaluation 1ST: Unchanged Time of 2ND Reevaluation: 15:29 Reevaluation 2ND: Improved Patient Education/Counseling: Diagnosis, Treatment, Prognosis, Need For Follow Up Family Education/Counseling: Diagnosis, Treatment, Prognosis, Need For Follow Up Departure 1 Departure Time of Disposition: 15:29 Impression: Primary Impression: Arthritis of knee Disposition: 01 HOME / SELF CARE / HOMELESS Condition: Fair Discharged With: Self Critical Care Note Critical Care Time?: No Stability Stability form required: No Heart Score Heart Score: Heart Score Response (Comments) Value History N/A 0 EKG N/A 0 Age N/A 0 Risk Factors N/A 0 Troponin N/A 0 Total 0 I personally scribed for ROSA ISELA BEDOYA MD ([email or web address]) on 11/11/24 at 14:18. Electronically submitted by Lay Young ([email or web address]). I personally scribed for ROSA ISELA BEDOYA MD ([email or web address]) on 11/11/24 at 15:20. Electronically submitted by Lay Young ([email or web address]). ROSA ISELA BEDOYA MD Nov 11, 2024 14:18
--- NOTE | 2024-11-11 14:41 | DVH ---
EXAM: XY L KNEE 3V XRAY CLINICAL HISTORY: PAIN S/P FALL COMPARISON: XY R KNEE 2V XRAY on DOS: 05/26/24 TECHNIQUE: XY L KNEE 3V XRAY Findings/Impression: 3 views of the left knee. There is no evidence of an acute fracture, dislocation, blastic, or lytic lesions. No radiopaque foreign bodies. No joint effusion or superficial soft tissue abnormalities.
--- NOTE | 2024-11-11 15:09 | DVH ---
Bilateral lower extremity venous duplex Clinical History: leg swelling Comparison: US RT LOWER DVT on DOS: 05/25/24, US RT LOWER DVT on DOS: 05/02/24, US BILAT LOWER DVT on DO S: 03/22/24 Technique: Duplex Doppler evaluation of the deep venous systems of both lower extremities from the common femora l veins to the popliteal veins including color Doppler and spectral/pulsed waveform analysis was perf ormed. Findings: RIGHT SIDE: The common femoral vein demonstrates appropriate compressibility and waveform variability. There is compressibility/patency of the great saphenous vein at the proximal thigh. The femoral vein demonstrates appropriate compressibility and waveform variability. The deep femoral vein demonstrates appropriate compressibility and waveform variability. The popliteal vein demonstrates appropriate compressibility and waveform variability. There is normal compressibility at the tibioperoneal trunk. LEFT SIDE: The common femoral vein demonstrates appropriate compressibility and waveform variability. There is compressibility/patency of the great saphenous vein at the proximal thigh. The femoral vein demonstrates appropriate compressibility and waveform variability. The deep femoral vein demonstrates appropriate compressibility and waveform variability. The popliteal vein demonstrates appropriate compressibility and waveform variability. There is normal compressibility at the tibioperoneal trunk. Impression: 1. No right or left femoropopliteal venous thrombosis. 2. 5.76 x 3.13 cust RT popliteal fossa.
[2024-11-11 15:46] VITALS: BP 119/46; PULSE 61; RESP 99; TEMP 98.7; O2SAT 99
== END 2024-11-11 15:50 | disposition home or self-care (01) ==
LOC: ER 13:30
DX: M17.12 Unilateral primary osteoarthritis, left knee (principal); E78.5 Hyperlipidemia, unspecified; Z79.899 Other long term (current) drug therapy; Z98.890 Other specified postprocedural states
CPT/HCPCS: 73562; 93970

== ENCOUNTER 2024-12-05 08:22 | Inpatient (IN) | payer OTHER, MEDICAID ==
[2024-12-05] VITALS (7 sets, daily range): BP systolic 132; BP diastolic 87; PULSE 73–83; RESP 16–20; TEMP 97.6; O2SAT 93–97
[~2024-12-05] VITALS: Ht 152.4 cm; Wt 66.7 kg
--- NOTE | 2024-12-05 08:38 | ECG ---
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
--- NOTE | 2024-12-05 09:26 | ED.PDOC ---
History of Present Illness HPI Comments 74F who is bermudian speaking presents to the Er w/ business case analyst and w/ no other Hx associated to the c/c of SOB. 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 Pt reports on having ESCOB[place], Dizziness and SOB w/ substernal pain during inspiration. PMHx of Epilepsy, Sz, DVT and High Lipids. Denies chills, fever, N/V/D, CP or no other associated symptoms, modifiers, recent injuries or sick contacts at this time. Chief Complaint: Shortness of Breath Time Seen by MD: 08:50 Primary Care Provider: PENG Cruz Notes: Nurses Notes, Medications, Allergies Allergies: Coded Allergies: Penicillins (Verified Allergy, Severe, RASH, 03/23/24) Simvastatin (Verified Allergy, Intermediate, URTICARIA, HIVES, INSOMNIA, 05/26/24) Home Meds Active Scripts Ondansetron Odt 4MG Tab (ZOFRAN PO) 4 Mg Tb, 4 MG PO Q8HP PRN for 5 Days, #15 TAB ODT TAB-DISSOLVE IN MOUTH, THEN SWALLOW Prov:ROSA ISELA BEDOYA MD 07/31/24 Nitrofurantoin Monohydrate Mac (Macrobid) 100 Mg Cap, 100 MG PO BID for 7 Days, #14 CAP Prov:ROSA ISELA BEDOYA MD 07/31/24 Hydrocodone-Acetaminophen (Hydrocodone Bitartrate/AC 5-325 mg) 1 Tab Tab, 1 TAB PO QID PRN, #30 TAB Prov:ERIK MEADOWS MD 05/28/24 Clindamycin Hcl (Clindamycin Hcl) 300 Mg Cap, 1 CAP PO TID, #30 CAP Prov:ERIK MEADOWS MD 05/28/24 Reported Medications Gabapentin (Gabapentin) 300 Mg Cap, PO for NUEROPATHY 05/26/24 Topiramate (Topiramate) 25 Mg Tab, 1 TAB PO BID for EPILEPSY 05/26/24 Levetiracetam (Levetiracetam) 750 Mg Tab, 2 TAB PO BID for EPILEPSY 05/26/24 Diclofenac Sodium (Topical) (Arthritis Pain Reliever) 1 % Gel, 1 % EX BIDP, GEL 03/23/24 Ibuprofen (Ibuprofen) 800 Mg Tab, 800 MG PO TIDPRN for PAIN, MG 03/23/24 Acetaminophen (Acetaminophen) 325 Mg Tab, 650 MG PO Q4HPRN PRN for MILD PAIN for 30 Days, MG 0 Refills 03/23/24 Cholecalciferol (VITAMIN D3) 2,000 Unit Tab, 88300 UNIT OR QWEEKLY, TAB 03/23/24 Phenytoin Sodium (DILANTIN CAPSULE) 100 Mg Cp, 200 MG PO for EPILEPSY, CAP 03/23/24 Information Source: Patient, Superintendent Generating [employer] Mode of Arrival: Ambulatory Severity: Moderate Timing: Hours Duration: Since onset, Hours Prehospital treatment: None Past Medical History PAST MEDICAL HISTORY: High Lipids, Seizures Past Medical History (Other): DVT and epilepsy Surgical History: Denies all surgeries SCREEN DOOR MAKER History: Denies all SCREEN DOOR MAKER Hx Family History Family History: Reviewed,noncontributory to illness, Unknown Social History Smoker: Non-Smoker Alcohol: Denies ETOH Use Drugs: Denies Drug Use Lives In: Home Constitutional: denies: chills, diaphoresis, fatigue, fever, malaise, sweats, weakness, others EENTM: denies: blurred vision, double vision, ear bleeding, ear discharge, ear drainage, ear pain, ear ringing, eye pain, eye redness, hearing loss, mouth pain, mouth swelling, nasal discharge, nose bleeding, nose congestion, nose pain, photophobia, tearing, throat pain, throat swelling, voice changes, others Respiratory: reports: shortness of breath ( ); denies: cough, hemoptysis, orthopnea, SOB at rest, SOB with excertion, stridor, wheezing, others Cardiovascular: denies: chest pain, dizzy spells, diaphoresis, Dyspnea on exertion, edema, irregular heart beat, left arm pain, lightheadedness, palpitations, PND, syncope, others Gastrointestinal: denies: abdomen distended, abdominal pain, blood streaked bowels, constipated, diarrhea, dysphagia, difficulty swallowing, hematemesis, melena, nausea, poor appetite, poor fluid intake, rectal bleeding, rectal pain, vomiting, others Genitourinary: denies: abnormal vagina bleeding, burning, dyspareunia, dysuria, flank pain, frequency, hematuria, incontinence, pain, , vagina discharge, urgency, others Neurological: reports: dizziness, headache; denies: fainting, left sided numbness, left sided weakness, numbness, paresthesia, pre-existing deficit, right sided numbness, right sided weakness, seizure, speech problems, tingling, tremors, weakness, others Musculoskeletal: denies: back pain, gout, joint pain, joint swelling, muscle pain, muscle stiffness, neck pain, others Integumetry: denies: bruises, change in color, change in hair/nails, dryness, laceration, lesions, lumps, rash, wounds, others Allergic/Immunocompromised: denies: Difficulty Healing, Frequent Infections, Hives, Itching, others Hematologic/Lymphatic: denies: anemia, blood clots, easy bleeding, easy br uising, swollen glands, others Endocrine: denies: excessive hunger, excessive sweating, excessive thirst, excessive urination, flushing, intolerance to cold, intolerance to heat, unexplained weight gain, unexplained weight loss, others Psychiatric: denies: anxiety, bipolar disorder, depression, hopeless, panic disorder, schizophrenia, sleepless, suicidal, others All Other Systems: Reviewed and Negative Physical Exam General Appearance: Moderate Distress, Normal HEENT: Normal ENT Inspection, Pharynx Normal, TMs Normal Neck: Full Range of Motion, Non-Tender, Normal, Normal Inspection Respiratory: Chest Non-Tender, Lungs Clear, No Accessory Muscle Use, No Respiratory Distress, Normal Breath Sounds Cardiovascular: No Edema, No JVD, No Murmur, No Gallop, Normal Peripheral Pulses, Regular Rate/Rhythm Breast Exam: Deferred Gastrointestinal: No Organomegaly, Non Tender, No Pulsatile Mass, Normal Bowel Sounds, Soft Genitalia: Deferred Pelvic: Deferred Rectal: Deferred Extremities: No calf tenderness, Normal capillary refill, Normal inspection, Normal range of motion, Non-tender, No pedal edema Musculoskeletal : Apperance: Normal Neurologic: Alert, cloud infrastructure architect II-XII nml as Tested, No Motor Deficits, Normal Affect, Normal Mood, No Sensory Deficits Cerebellar Function: NOT DONE Reflexes: NOT DONE Skin: Dry, Normal Color, Warm Peripheral Pulses: 3+ Radial (R), 3+ Radial (L) Lymphatic: No Adenopathy Was a procedure done? Was a procedure done?: No EKG EKG : Pulse Rate (adult): 80 [place]: Normal Cardiac Rhythm: NSR Differential Dx Considerations may include: Anemia Electrolyte imbalance X-Ray, Labs, Meds, VS Vital Signs Date Time Temp Pulse Resp B/P (MAP) Pulse Ox O2 Delivery O2 Flow Rate FiO2 12/05/24 10:33 98.9 91 18 140/61 (87) 94 98.9 12/05/24 10:16 80 12/05/24 08:37 99 12/05/24 08:27 99.6 89 18 139/90 (106) 99 99.6 Lab Test 12/05/24 10:26 12/05/24 08:30 Range/Units Urine Color Yellow Yellow Urine Clarity Clear Clear Urine pH 8.0 5.0-9.0 Urine Specific [place] 1.022 1.001-1.035 Urine Protein Trace H Negative Urine Ketones Negative Negative Urine Blood Negative Negative /uL Urine Nitrite Negative Negative Urine Bilirubin Negative Negative Urine Urobilinogen 2 H Negative mg/dL Urine Leukocyte Esterase Negative Negative /uL Urine RBC 9 0 - 4 /hpf Urine Microscopic WBC 1 0-5 /HPF Urine Squamous Epithelial Cells Few <5 /hpf Urine Bacteria None seen None Seen /hpf Urine Mucus Few None Seen Urine Glucose Normal Normal mg/dL White Blood Count 12.0 H 4.4-10.8 10^3/uL Red Blood Count 3.78 L 4.0-5.20 10^6/uL Hemoglobin 12.6 12.2-16.2 g/dL Hematocrit 37.6 36.0-46.0 % Mean Corpuscular Volume 99.6 80.0-100.0 fL Mean Corpuscular Hemoglobin 33.3 H 28.0-32.0 pg Mean Corpuscular Hemoglobin Concent 33.4 32.0-36.0 g/dL Red Cell Distribution Width 13.4 11.8-14.3 % Platelet Count 164 140-450 10^3/uL Mean Platelet Volume 9.2 6.9-10.8 fL Neutrophils (%) (Auto) 37.0-80.0 % Lymphocytes (%) (Auto) 10.0-50.0 % Monocytes (%) (Auto) 0.0-12.0 % Basophils (%) (Auto) 0.0-2.0 % Neutrophils # (Auto) 1.6-8.6 10 ^3/uL Lymphocytes # (Auto) 0.4-5.4 10 ^3/uL Monocytes # (Auto) 0-1.3 10 ^3/uL Differential Total Cells Counted Pending Neutrophils % (Manual) Pending Band Neutrophils % (Manual) Pending Lymphocytes % (Manual) Pending Monocytes % (Manual) Pending Eosinophils % (Manual) Pending Basophils % (Manual) Pending Metamyelocytes % (manual) Pending Myelocytes % (Manual) Pending Promyelocytes % (Manual) Pending Blast Cells % (Manual) Pending Reactive Lymphocytes Pending Platelet Estimate Pending Sodium Level 142 136-145 mmol/L Potassium Level 3.9 3.5-5.1 mmol/L Chloride Level 108 H 98-107 mmol/L Carbon Dioxide Level 24 20-31 mmol/L Anion Gap 10 5-15 Blood Urea Nitrogen 10 9-23 mg/dL Creatinine 0.62 0.550-1.02 mg/dL Glomerular Filtration Rate Calc 93 >90 mL/min BUN/Creatinine Ratio 16.1 10.0-20.0 Serum Glucose 79 74-106 mg/dL Calcium Level 9.2 8.7-10.4 mg/dL Current Medications Medications (Trade) Dose Ordered Sig/Emilia Route Start Time Stop Time Status Last Admin Methylprednisolone Sodium Succinate (Solu Medrol) 125 mg ONCE ONCE IV 12/05/24 10:30 12/05/24 10:31 DC 12/05/24 11:07 Levofloxacin/ Dextrose 100 ml @ 100 mls/hr ONCE ONCE IV 12/05/24 10:30 12/05/24 11:29 12/05/24 11:07 EXAMINATION: AP portable chest radiograph CLINICAL HISTORY: sob COMPARISON: None FINDINGS: Question central pulmonary vascular congestion. Normal cardiomediastinal silhouette. No consolidation. No pneumothorax. Soft tissue calcification likely related to intra-articular body is in the right subscapularis recess. IMPRESSION: 1. Central pulmonary vascular congestion.Question peripheral interstitial edema. 2. Correlate for volume overload. Patient alert. Complaining of shortness a breath especially when walking. Vitals stable. Answering questions. WBC elevated. Possible urinary tract infection. Chest x-ray reviewed does show pneumonitis. Establish intravenous access. Was given Levaquin. Was given steroid. Reviewed her visit. Explained to the patient. Continue cardiac monitoring. EKG reviewed does not show any acute changes. Time of 1ST Reevaluation: 09:20 Reevaluation 1ST: Unchanged Patient Education/Counseling: Diagnosis, Treatment, Prognosis Family Education/Counseling: Diagnosis, Treatment, Prognosis Departure 1 Departure Time of Disposition: 10:15 Impression: Primary Impression: Pneumonitis Disposition: ADMITTED INPATIENT Admit to: Med Surg Condition: Guarded Critical Care Note Critical Care Time?: No Stability Stability form required: No Heart Score Heart Score: Heart Score Response (Comments) Value History Slightly Suspicious 0 EKG Normal 0 Age >65 2 Risk Factors >3 or Hx ASHD 2 Troponin Normal limit 0 Total 4 I personally scribed for ALEXANDRE DIEGO MD ([email or web address]) on 12/05/24 at 09:26. Electronically submitted by Dheeraj Todd ([email or web address]). I personally scribed for ALEXANDRE DIEGO MD ([email or web address]) on 12/05/24 at 11:27. Electronically submitted by Dheeraj Todd ([email or web address]). ALEXANDRE DIEGO MD Dec 05, 2024 09:26
--- NOTE | 2024-12-05 09:47 | DVH ---
EXAMINATION: AP portable chest radiograph CLINICAL HISTORY: sob COMPARISON: None FINDINGS: Question central pulmonary vascular congestion. Normal cardiomediastinal silhouette. No consolidatio n. No pneumothorax. Soft tissue calcification likely related to intra-articular body is in the right subscapularis recess. IMPRESSION: 1. Central pulmonary vascular congestion.Question peripheral interstitial edema. 2. Correlate for volume overload.
[2024-12-05 09:48] LABS: Potassium 3.9 mmol/L (3.5-5.1); Sodium 142 mmol/L (136-145)
[2024-12-05 09:49] LABS: Anion Gap 10 (5-15); Calcium 9.2 mg/dL (8.7-10.4); Carbon Dioxide 24 mmol/L (20-31)
[2024-12-05 09:52] LABS: Chloride 108 mmol/L (98-107)
[2024-12-05 09:54] LABS: BUN/Creatinine Ratio 16.1 (10.0-20.0); Blood Urea Nitrogen 10 mg/dL (9-23); Glucose 79 mg/dL (74-106)
[2024-12-05 10:06] LABS: Hematocrit 37.6 % (36.0-46.0); Hemoglobin 12.6 g/dL (12.2-16.2); Mean Corpuscular Hemoglobin 33.3 pg (28.0-32.0); Mean Corpuscular Hgb Conc. 33.4 g/dL (32.0-36.0); Mean Corpuscular Volume 99.6 fL (80.0-100.0); Platelet Count (auto) 164 10^3/uL (140-450); Red Blood Cells 3.78 10^6/uL (4.0-5.20); Red Cell Distribution Width 13.4 % (11.8-14.3)
[2024-12-05 10:08] LABS: Basophils % (manual) 0 (0.0-2.0); Blast Cells 0; Metamyelocytes % 0; Myelocytes % 0; Promyelocytes % 0; Reactive Lymphocytes 0
[2024-12-05 10:52] LABS: Urine Bacteria None Seen /hpf (None Seen)
[2024-12-05] MEDS: methylPREDNISolone SOD SUCC 125 MG/2 ML VL IV ONE (11:07)
[2024-12-05] MEDS: levoFLOXacin 500MG 100 ML IV ONE (11:07)
[2024-12-05 11:15] LABS: Urine Blood Negative /uL (Negative); Urine Clarity Clear (Clear); Urine Color Yellow (Yellow); Urine Mucus FEW (None Seen); Urine Protein, UAD TRACE (Negative); Urine Specific Gravity 1.022 (1.001-1.035); Urine Squamous Epithelial Cell FEW /hpf (<5); Urine Urobilinogen 2 mg/dL (Negative); Urine WBC 1 /HPF (0-5)
[2024-12-05 12:04] LABS: Band Neutrophils % (manual) 8; Eosinophils % (manual) 1 (0-7); Lymphocytes % (manual) 4 (10.0-50.0); Monocytes % (manual) 4 (0-12); Platelet Estimate Adequate
[2024-12-05] MEDS ORDERED: ONDANSETRON HCL 4 MG/2 ML VIAL IV PRN (13:15)
[2024-12-05] MEDS ORDERED: IPRATROPIUM BROM 0.5 MG/2.5ML INH SOL NEB PRN (13:15)
[2024-12-05] MEDS ORDERED: ALBUTEROL SULF 2.5 MG/0.5ML(0.5%) NEB SOLN NEB PRN (13:15)
[2024-12-05] MEDS ORDERED: SIMV20TA20 PO (13:29)
[2024-12-05] MEDS ORDERED: MELO7.5T7 PO (13:29)
[2024-12-05] MEDS: ALBUTEROL SULF 2.5 MG/0.5ML(0.5%) NEB SOLN NEB SCH (13:42)
[2024-12-05] MEDS: IPRATROPIUM BROM 0.5 MG/2.5ML INH SOL NEB SCH (13:43)
--- NOTE | 2024-12-05 13:58 | DVHHP2 ---
History of Present Illness Reason for Visit: Shortness of breath History of Present Illness Ying Guzmán is a 74-year-old female with past medical history of hyperlipidemia, CHF, DVT, seizure, and epilepsy who presents to the ED with shortness of breath with headache and dizziness. Patient also reports she has been having productive yellow phlegm. Upon examination patient is using a Rollator to help with ambulation. Patient denies any chest pain, fever, chills, recent trauma or injury, abdominal pain, nausea, vomiting, diarrhea, lightheadedness, weakness, or urinary symptoms. 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: Other (Seizure and epilepsy) Past Medical History DVT Past Surgical History: None Family History: None Smoke: No ALCOHOL: none Drugs: None Lives: with Family Domestic Violence: Neg Review of Systems Constitutional: Yes: Other (Headache and dizziness) Respiratory: Shortness of breath, Sputum Allergies: Coded Allergies: Penicillins (Verified Allergy, Severe, RASH, 03/23/24) Simvastatin (Verified Allergy, Intermediate, URTICARIA, HIVES, INSOMNIA, 05/26/24) Medications Current Medications Medications Dose Ordered Sig/Emilia Route Start Time Stop Time Status Last Admin Dose Admin Levofloxacin/ Dextrose 100 ml @ 100 mls/hr DAILY IV 12/06/24 10:00 Ondansetron HCl 4 mg Q4HP PRN IV 12/05/24 13:15 Enoxaparin Sodium 40 mg DAILY SC 12/06/24 10:00 Acetaminophen 650 mg Q6HP PRN PO 12/05/24 13:15 Methylprednisolone Sodium Succinate 80 mg BID IV 12/05/24 22:00 Albuterol 2.5 mg Q4HWA NEB 12/05/24 14:00 12/05/24 13:42 2.5 MG Albuterol 2.5 mg Q2HPRN PRN NEB 12/05/24 13:15 Ipratropium [place] 0.5 mg Q4HWA NEB 12/05/24 14:00 12/05/24 13:43 0.5 MG Ipratropium [place] 0.5 mg Q2HPRN PRN NEB 12/05/24 13:15 Phenytoin Sodium 200 mg DAILY PO 12/06/24 10:00 UNV Topiramate 25 mg BID PO 12/05/24 22:00 UNV Patient Own Medication 50,000 unit QWEEKLY OR 12/05/24 13:15 UNV Patient Own Medication 1 % BIDP EX 12/05/24 22:00 UNV Patient Own Medication 2 tab BID PO 12/05/24 22:00 UNV Exam Vital Signs Vital Signs Date Time Temp Pulse Resp B/P (MAP) Pulse Ox O2 Delivery O2 Flow Rate FiO2 12/05/24 13:43 93 Room Air* 0 21 12/05/24 13:43 80 18 12/05/24 13:35 97.6 132/87 (102) 97.6 General Appearance: Alert, Oriented X3, Cooperative, No acute distress HEENT: Atraumatic, PERRLA, EOMI, Mucous membr. moist/pink Respiratory: Normal air movement Cardiovascular: Regular rate, Normal S1, Normal S2, No murmurs Abdominal: Normal bowel sounds, Soft, No tenderness, No hepatospenomegaly, No masses Extremities: No cyanosis, Normal pulses Skin: No significant lesion Neuro: Normal speech, Normal tone, Sensation intact Psych/Mental Status: Mental status NL, Mood NL Labs/Xrays Labs Test 12/05/24 10:26 12/05/24 08:30 Range/Units Urine Color Yellow Yellow Urine Clarity Clear Clear Urine pH 8.0 5.0-9.0 Urine Specific [place] 1.022 1.001-1.035 Urine Protein Trace H Negative Urine Ketones Negative Negative Urine Blood Negative Negative /uL Urine Nitrite Negative Negative Urine Bilirubin Negative Negative Urine Urobilinogen 2 H Negative mg/dL Urine Leukocyte Esterase Negative Negative /uL Urine RBC 9 0 - 4 /hpf Urine Microscopic WBC 1 0-5 /HPF Urine Squamous Epithelial Cells Few <5 /hpf Urine Bacteria None seen None Seen /hpf Urine Mucus Few None Seen Urine Glucose Normal Normal mg/dL White Blood Count 12.0 H 4.4-10.8 10^3/uL Red Blood Count 3.78 L 4.0-5.20 10^6/uL Hemoglobin 12.6 12.2-16.2 g/dL Hematocrit 37.6 36.0-46.0 % Mean Corpuscular Volume 99.6 80.0-100.0 fL Mean Corpuscular Hemoglobin 33.3 H 28.0-32.0 pg Mean Corpuscular Hemoglobin Concent 33.4 32.0-36.0 g/dL Red Cell Distribution Width 13.4 11.8-14.3 % Platelet Count 164 140-450 10^3/uL Mean Platelet Volume 9.2 6.9-10.8 fL Neutrophils (%) (Auto) 37.0-80.0 % Lymphocytes (%) (Auto) 10.0-50.0 % Monocytes (%) (Auto) 0.0-12.0 % Basophils (%) (Auto) 0.0-2.0 % Neutrophils # (Auto) 1.6-8.6 10 ^3/uL Lymphocytes # (Auto) 0.4-5.4 10 ^3/uL Monocytes # (Auto) 0-1.3 10 ^3/uL Differential Total Cells Counted 100.0 100 Neutrophils % (Manual) 83 H 37.0-80.0 Band Neutrophils % (Manual) 8 Lymphocytes % (Manual) 4 L 10.0-50.0 Monocytes % (Manual) 4 0-12 Eosinophils % (Manual) 1 0-7 Basophils % (Manual) 0 0.0-2.0 Metamyelocytes % (manual) 0 Myelocytes % (Manual) 0 Promyelocytes % (Manual) 0 Blast Cells % (Manual) 0 Reactive Lymphocytes 0 Platelet Estimate Adequate Sodium Level 142 136-145 mmol/L Potassium Level 3.9 3.5-5.1 mmol/L Chloride Level 108 H 98-107 mmol/L Carbon Dioxide Level 24 20-31 mmol/L Anion Gap 10 5-15 Blood Urea Nitrogen 10 9-23 mg/dL Creatinine 0.62 0.550-1.02 mg/dL Glomerular Filtration Rate Calc 93 >90 mL/min BUN/Creatinine Ratio 16.1 10.0-20.0 Serum Glucose 79 74-106 mg/dL Calcium Level 9.2 8.7-10.4 mg/dL EXAMINATION: AP portable chest radiograph CLINICAL HISTORY: sob COMPARISON: None FINDINGS: Question central pulmonary vascular congestion. Normal cardiomediastinal silhouette. No consolidation. No pneumothorax. Soft tissue calcification li noreen related to intra-articular body is in the right subscapularis recess. IMPRESSION: 1. Central pulmonary vascular congestion.Question peripheral interstitial edema. 2. Correlate for volume overload. Assessment/Plan Assessment/Plan Assessment Acute on chronic CHF exacerbation Leukocytosis probable due to PNA History of hyperlipidemia History of DVT History of seizures History of epilepsy Plan Admit to med surge UA IV antibiotics-Levaquin IV steroids Manual differential Chest x-ray EKG Duo nebs BNP Strict I&Os Daily weights Dilantin levels DVT prophylaxis-Lovenox Home medications reconciled PUD prophylaxis-not indicated no history of GERD or GI bleed Discussed plan of care with patient, patient's spouse, and nurse Plan discussed with: Patient, Spouse My Orders Orders - EMERALD RIVERO Procedure Category Date Status Time Levofloxacin 500mg PHA 12/06/24 In Process (Levaquin 500mg/ 100m 10:00 Admit ADMIT 12/05/24 Transmitted 13:04 Allergies DARLEEN 12/05/24 In Process 13:04 Ondansetron Hcl PHA 12/05/24 In Process (Zofran) 13:15 Enoxaparin Sodium PHA 12/06/24 In Process (Lovenox) 10:00 Complete Blood Count LAB 12/06/24 Verified 04:00 Comprehensive LAB 12/06/24 Verified Metabolic Panel 04:00 Cardiac DIET 12/05/24 Transmitted Diet-2gna,Lofat,Lochol Lunch Acetaminophen Tablet PHA 12/05/24 In Process (Tylenol Tablet) 13:15 Methylprednisolone PHA 12/05/24 In Process Sod Succ (Solu Medrol 22:00 Albuterol Medneb PHA 12/05/24 In Process (Ventolin Medneb) 14:00 Albuterol Medneb PHA 12/05/24 In Process (Ventolin Medneb) 13:15 Ipratropium Medneb PHA 12/05/24 In Process (Atrovent Medneb) 14:00 Ipratropium Med[place] PHA 12/05/24 In Process (Atrovent Medneb) 13:15 Phenytoin Capsule PHA 12/06/24 Logged (Dilantin Capsule) 10:00 Topiramate (Topamax) PHA 12/05/24 Logged 22:00 (Nf) Cholecalciferol PHA 12/05/24 Logged (Vitamin D3) 13:15 (Nf) Diclofenac PHA 12/05/24 Logged Sodium (Topical) 22:00 (Nf) Levetiracetam PHA 12/05/24 Logged 22:00 Phenytoin (Dilantin) LAB 12/05/24 In Process 13:29 B-Type Natriuretic LAB 12/05/24 Transmitted Peptide 13:45 Date of Service: Dec 05, 2024 Billing Provider: THON,SALINA K SERVICE OPERATOR Common Visit Codes: [id number] INP/OBS CARE (HIGH) EMERALD IRVERO SERVICE OPERATOR Dec 05, 2024 13:58
[2024-12-05] MEDS: PHENYTOIN SODIUM 100 MG CAP PO SCH (14:04)
[2024-12-05] MEDS: GABAPENTIN 300 MG CAP PO SCH (14:31)
--- NOTE | 2024-12-05 16:44 | DVH ---
Bilateral lower extremity venous duplex Date: 12/05/2024 03:50 PM Clinical History: hx of dvt, edema Comparison: US BILAT LOWER DVT on DOS: 11/11/24, US RT LOWER DVT on DOS: 05/25/24, US RT LOWER DVT on D OS: 05/02/24, US BILAT LOWER DVT on DOS: 03/22/24 Findings: Duplex Doppler evaluation of the deep venous systems of both lower extremities from the common femora l veins to the popliteal veins including color Doppler and spectral/pulsed waveform analysis was perf ormed. RIGHT SIDE: The common femoral vein demonstrates appropriate compressibility and waveform variability. There is compressibility/patency of the great saphenous vein at the proximal thigh. The femoral vein demonstrates appropriate compressibility and waveform variability. The deep femoral vein demonstrates appropriate compressibility and waveform variability. The popliteal vein demonstrates appropriate compressibility and waveform variability. There is normal compressibility at the tibioperoneal trunk. LEFT SIDE: The common femoral vein demonstrates appropriate compressibility and waveform variability. There is compressibility/patency of the great saphenous vein at the proximal thigh. The femoral vein demonstrates appropriate compressibility and waveform variability. The deep femoral vein demonstrates appropriate compressibility and waveform variability. The popliteal vein demonstrates appropriate compressibility and waveform variability. There is normal compressibility at the tibioperoneal trunk. IMPRESSION: No right or left femoropopliteal venous thrombosis. If clinical concern/symptoms persist or worsen, short-interval follow-up study is suggested. END IMPRESSION:
[2024-12-05] MEDS ORDERED: DICLOFENAC SODIUM 1% TOP SCH (22:00)
[2024-12-06] VITALS (16 sets, daily range): BP systolic 100–129; BP diastolic 45–73; PULSE 67–96; RESP 10–18; TEMP 97.4–98.5; O2SAT 93–99
[2024-12-06] MEDS: methylPREDNISolone SOD SUCC 125 MG/2 ML VL IV SCH (01:09)
[2024-12-06] MEDS: ACETAMINOPHEN 325 MG TAB PO PRN (01:10)
[2024-12-06] MEDS: TOPIRAMATE 25 MG TAB PO SCH (01:10)
[2024-12-06] MEDS: levETIRAcetam 500 MG TAB PO SCH (01:11)
[2024-12-06] MEDS ORDERED: ASCO500T11 PO (04:38)
[2024-12-06 07:19] LABS: Basophils # (auto) 0 10 ^3/uL (0-0.2); Eosinophils # (auto) 0 10 ^3/uL (0-0.8); Eosinophils % (auto) 0.1 % (0.0-7.0); Lymphocytes # (auto) 0.7 10 ^3/uL (0.4-5.4); Nucleated Red Blood Cells % 0.1 %
[2024-12-06 07:20] LABS: Alanine Aminotransferase 11 U/L (7-40); Alkaline Phosphatase 97 U/L (46-116); Anion Gap 9 (5-15); Aspartate Aminotransferase 18 U/L (13-40); BUN/Creatinine Ratio 13.6 (10.0-20.0); Blood Urea Nitrogen 9 mg/dL (9-23); Carbon Dioxide 22 mmol/L (20-31); Potassium 3.7 mmol/L (3.5-5.1); Sodium 139 mmol/L (136-145); Total Protein 6.1 g/dL (5.7-8.2)
[2024-12-06 07:21] LABS: Albumin 3.3 g/dL (3.2-4.8); Bilirubin, Total 0.4 mg/dL (0.2-1.0)
[2024-12-06 07:22] LABS: Basophils % (auto) 0.4 % (0.0-2.0); Hemoglobin 11.4 g/dL (12.2-16.2); Lymphocytes % (auto) 10.2 % (10.0-50.0); Mean Corpuscular Hemoglobin 34.3 pg (28.0-32.0); Mean Corpuscular Hgb Conc. 34.4 g/dL (32.0-36.0); Mean Corpuscular Volume 99.7 fL (80.0-100.0); Monocytes # (auto) 0.3 10 ^3/uL (0-1.3); Neutrophils % (auto) 85.3 % (37.0-80.0); Platelet Count (auto) 146 10^3/uL (140-450); Red Blood Cells 3.31 10^6/uL (4.0-5.20); Red Cell Distribution Width 13.6 % (11.8-14.3)
[2024-12-06 07:23] LABS: Chloride 108 mmol/L (98-107); Glucose 118 mg/dL (74-106)
[2024-12-06] MEDS: levoFLOXacin 500MG 100 ML IV SCH (09:14)
[2024-12-06] MEDS: CHOLECALCIFEROL (VITD3) 1,000UNIT=25mCg TAB PO SCH (09:14)
[2024-12-06] MEDS: ENOXAPARIN SOD 40 MG/0.4 ML SYRINGE SC SCH (09:15)
--- NOTE | 2024-12-06 11:50 | DVHPN2 ---
Reviewed: Care Plan, H&P, Labs, Medications, Previous Orders, Radiology Changes from previous H/P or p: No Changes Respiratory: Shortness of breath, Sputum Objective Vitals Vital Signs Date Time Temp Pulse Resp B/P (MAP) Pulse Ox O2 Delivery O2 Flow Rate FiO2 12/06/24 11:18 72 18 95 12/06/24 11:10 Nasal Cannula 0.0 12/06/24 11:10 21 12/06/24 09:00 98.0 100/47 (64) 98.0 Intake/Output Intake and Output 12/06/24 07:00 Intake Total 100 ml Balance 100 ml Intake Oral 0 ml IV Total 100 ml # Voids 1 Medications Current Medications Medications Dose Ordered Sig/Emilia Route Start Time Stop Time Status Last Admin Dose Admin Levofloxacin/ Dextrose 100 ml @ 100 mls/hr DAILY IV 12/06/24 10:00 12/06/24 09:14 100 MLS/HR Ondansetron HCl 4 mg Q4HP PRN IV 12/05/24 13:15 Enoxaparin Sodium 40 mg DAILY SC 12/06/24 10:00 12/06/24 09:15 40 MG Acetaminophen 650 mg Q6HP PRN PO 12/05/24 13:15 12/06/24 01:10 650 MG Methylprednisolone Sodium Succinate 80 mg BID IV 12/05/24 22:00 12/06/24 09:15 80 MG Albuterol 2.5 mg Q4HWA NEB 12/05/24 14:00 12/06/24 11:10 2.5 MG Albuterol 2.5 mg Q2HPRN PRN NEB 12/05/24 13:15 Ipratropium [place] 0.5 mg Q4HWA NEB 12/05/24 14:00 12/06/24 11:10 0.5 MG Ipratropium [place] 0.5 mg Q2HPRN PRN NEB 12/05/24 13:15 Phenytoin Sodium 200 mg DAILY PO 12/05/24 14:04 Hold Topiramate 25 mg BID PO 12/05/24 22:00 12/06/24 09:14 25 MG Cholecalciferol 2,000 unit DAILY PO 12/06/24 10:00 12/06/24 09:14 2,000 UNIT Patient Own Medication 1 % BIDP TOP 12/05/24 22:00 Hold Levetiracetam 1,500 mg BID PO 12/05/24 22:00 12/06/24 09:14 1,500 MG Gabapentin 300 mg TID PO 12/05/24 14:00 12/06/24 09:14 300 MG Laboratory Results Laboratory Tests 12/06/24 06:26 Chemistry Test 12/06/24 06:26 Albumin 3.3 g/dL (3.2-4.8) Calcium Level 9.0 mg/dL (8.7-10.4) Total Protein 6.1 g/dL (5.7-8.2) LFT Test 12/06/24 06:26 Alanine Aminotransferase (ALT) 11 U/L (7-40) Alkaline Phosphatase 97 U/L (46-116) Aspartate Amino Transferase (AST) 18 U/L (13-40) Total Bilirubin 0.4 mg/dL (0.2-1.0) Urinalysis Test 12/05/24 10:26 Urine Color Yellow (Yellow) Urine Clarity Clear (Clear) Urine pH 8.0 (5.0-9.0) Urine Specific [place] 1.022 (1.001-1.035) Urine Protein Trace (Negative) H Urine Ketones Negative (Negative) Urine Blood Negative /uL (Negative) Urine Nitrite Negative (Negative) Urine Bilirubin Negative (Negative) Urine Urobilinogen 2 mg/dL (Negative) H Urine Leukocyte Esterase Negative /uL (Negative) Urine RBC 9 /hpf (0 - 4) Urine Microscopic WBC 1 /HPF (0-5) Urine Squamous Epithelial Cells Few /hpf (<5) Urine Bacteria None seen /hpf (None Seen) Urine Mucus Few (None Seen) Urine Glucose Normal mg/dL (Normal) Labs and/or images reviewed: Labs reviewed by me, Image(s) reviewed by me Assessment/Plan Assessment/Plan Acute on chronic CHF exacerbation Leukocytosis probable due to PNA Levaquin History of hyperlipidemia History of DVT DVT bilateral lower extremities ruled out during this visit History of seizures Keppra History of epilepsy Peripheral neuropathy: Gabapentin Time spent 50 minutes Patient is full code Advanced care planning time 20 minutes Plan discussed with: Patient Date of Service: Dec 06, 2024 Billing Provider: ERIK MEADOWS MD Common Visit Codes: [id number] INP/OBS CARE(HIGH) Secondary Visit Codes: [id number] CARE PLAN 30 MINUTES ERIK MEADOWS MD Dec 06, 2024 11:50
[2024-12-06 15:18] LABS: COVID19 ANTIGEN SOFIA FIA NEGATIVE (NEGATIVE); Rapid Influenza A Negative (Negative); Rapid Influenza B Negative (Negative)
[2024-12-07] VITALS (8 sets, daily range): BP systolic 101–118; BP diastolic 47–62; PULSE 68–76; RESP 15–17; TEMP 97.5–98.2; O2SAT 94–97
[2024-12-07] MEDS ORDERED: ALBUAER3 IN (10:16)
[2024-12-07] MEDS ORDERED: LEVO500T91 PO (10:16)
--- NOTE | 2024-12-07 10:17 | DVHPN2 ---
Reviewed: Care Plan, H&P, Labs, Medications, Previous Orders, Radiology Changes from previous H/P or p: No Changes Respiratory: Shortness of breath, Sputum Objective Vitals Vital Signs Date Time Temp Pulse Resp B/P (MAP) Pulse Ox O2 Delivery O2 Flow Rate FiO2 12/07/24 08:38 97.5 68 16 115/51 (72) 97 97.5 12/06/24 20:00 Room Air* 0 21 Intake/Output Intake and Output 12/07/24 07:00 Intake Total 1050 ml Balance 1050 ml Intake Oral 1050 ml # Voids 6 Medications Current Medications Medications Dose Ordered Sig/Emilia Route Start Time Stop Time Status Last Admin Dose Admin Levofloxacin/ Dextrose 100 ml @ 100 mls/hr DAILY IV 12/06/24 10:00 12/06/24 09:14 100 MLS/HR Ondansetron HCl 4 mg Q4HP PRN IV 12/05/24 13:15 Enoxaparin Sodium 40 mg DAILY SC 12/06/24 10:00 12/06/24 09:15 40 MG Acetaminophen 650 mg Q6HP PRN PO 12/05/24 13:15 12/06/24 21:17 650 MG Methylprednisolone Sodium Succinate 80 mg BID IV 12/05/24 22:00 12/06/24 21:15 80 MG Albuterol 2.5 mg Q2HPRN PRN NEB 12/05/24 13:15 Cancel Ipratropium Iron 0.5 mg Q2HPRN PRN NEB 12/05/24 13:15 Cancel Phenytoin Sodium 200 mg DAILY PO 12/05/24 14:04 Hold Topiramate 25 mg BID PO 12/05/24 22:00 12/06/24 21:17 25 MG Cholecalciferol 2,000 unit DAILY PO 12/06/24 10:00 12/06/24 09:14 2,000 UNIT Patient Own Medication 1 % BIDP TOP 12/05/24 22:00 Hold Levetiracetam 1,500 mg BID PO 12/05/24 22:00 12/06/24 21:16 1,500 MG Gabapentin 300 mg TID PO 12/05/24 14:00 12/07/24 05:34 300 MG Laboratory Results Laboratory Tests 12/06/24 06:26 Urinalysis Test 12/05/24 10:26 Urine Color Yellow (Yellow) Urine Clarity Clear (Clear) Urine pH 8.0 (5.0-9.0) Urine Specific [place] 1.022 (1.001-1.035) Urine Protein Trace (Negative) H Urine Ketones Negative (Negative) Urine Blood Negative /uL (Negative) Urine Nitrite Negative (Negative) Urine Bilirubin Negative (Negative) Urine Urobilinogen 2 mg/dL (Negative) H Urine Leukocyte Esterase Negative /uL (Negative) Urine RBC 9 /hpf (0 - 4) Urine Microscopic WBC 1 /HPF (0-5) Urine Squamous Epithelial Cells Few /hpf (<5) Urine Bacteria None seen /hpf (None Seen) Urine Mucus Few (None Seen) Urine Glucose Normal mg/dL (Normal) Labs and/or images reviewed: Labs reviewed by me, Image(s) reviewed by me Assessment/Plan Assessment/Plan Acute on chronic CHF exacerbation Leukocytosis probable due to PNA Levaquin Hyperlipidemia History of DVT DVT bilateral lower extremities ruled out during this visit History of seizures Keppra History of epilepsy Peripheral neuropathy: Gabapentin Time spent 50 minutes Patient is full code Advanced care planning time 20 minutes Plan discussed with: Patient Date of Service: Dec 07, 2024 Billing Provider: ERIK MEADOWS MD Common Visit Codes: [id number] INP/OBS CARE(HIGH) ERIK MEADOWS MD Dec 07, 2024 10:17
--- NOTE | 2024-12-07 10:21 | DVHDS2 ---
Discharge Summary Date of Admission Dec 05, 2024 at 13:04 Date of Discharge: Dec 07, 2024 Admitting Diagnosis Shortness of breath Wounds: None Labs/Diagnostic Data: Laboratory Results Test 12/06/24 13:42 12/06/24 06:26 12/05/24 10:26 12/05/24 08:30 Influenza Type A Antigen Negative (Negative) Influenza Type B Antigen Negative (Negative) SARS-CoV-2 Antigen (Rapid) Negative (NEGATIVE) White Blood Count 7.0 10^3/uL (4.4-10.8) Red Blood Count 3.31 10^6/uL (4.0-5.20) Hemoglobin 11.4 g/dL (12.2-16.2) Hematocrit 33.0 % (36.0-46.0) Mean Corpuscular Volume 99.7 fL (80.0-100.0) Mean Corpuscular Hemoglobin 34.3 pg (28.0-32.0) Mean Corpuscular Hemoglobin Concent 34.4 g/dL (32.0-36.0) Red Cell Distribution Width 13.6 % (11.8-14.3) Platelet Count 146 10^3/uL (140-450) Mean Platelet Volume 8.7 fL (6.9-10.8) Neutrophils (%) (Auto) 85.3 % (37.0-80.0) Lymphocytes (%) (Auto) 10.2 % (10.0-50.0) Monocytes (%) (Auto) 4.0 % (0.0-12.0) Eosinophils (%) (Auto) 0.1 % (0.0-7.0) Basophils (%) (Auto) 0.4 % (0.0-2.0) Neutrophils # (Auto) 6.0 10 ^3/uL (1.6-8.6) Lymphocytes # (Auto) 0.7 10 ^3/uL (0.4-5.4) Monocytes # (Auto) 0.3 10 ^3/uL (0-1.3) Eosinophils # (Auto) 0 10 ^3/uL (0-0.8) Basophils # (Auto) 0 10 ^3/uL (0-0.2) Nucleated Red Blood Cells 0.1 % Sodium Level 139 mmol/L (136-145) Potassium Level 3.7 mmol/L (3.5-5.1) Chloride Level 108 mmol/L (98-107) Carbon Dioxide Level 22 mmol/L (20-31) Anion Gap 9 (5-15) Blood Urea Nitrogen 9 mg/dL (9-23) Creatinine 0.66 mg/dL (0.550-1.02) Glomerular Filtration Rate Calc 91 mL/min (>90) BUN/Creatinine Ratio 13.6 (10.0-20.0) Serum Glucose 118 mg/dL (74-106) Calcium Level 9.0 mg/dL (8.7-10.4) Total Bilirubin 0.4 mg/dL (0.2-1.0) Aspartate Amino Transferase (AST) 18 U/L (13-40) Alanine Aminotransferase (ALT) 11 U/L (7-40) Alkaline Phosphatase 97 U/L (46-116) Total Protein 6.1 g/dL (5.7-8.2) Albumin 3.3 g/dL (3.2-4.8) Urine Color Yellow (Yellow) Urine Clarity Clear (Clear) Urine pH 8.0 (5.0-9.0) Urine Specific [place] 1.022 (1.001-1.035) Urine Protein Trace (Negative) Urine Ketones Negative (Negative) Urine Blood Negative /uL (Negative) Urine Nitrite Negative (Negative) Urine Bilirubin Negative (Negative) Urine Urobilinogen 2 mg/dL (Negative) Urine Leukocyte Esterase Negative /uL (Negative) Urine RBC 9 /hpf (0 - 4) Urine Microscopic WBC 1 /HPF (0-5) Urine Squamous Epithelial Cells Few /hpf (<5) Urine Bacteria None seen /hpf (None Seen) Urine Mucus Few (None Seen) Urine Glucose Normal mg/dL (Normal) Differential Total Cells Counted 100.0 (100) Neutrophils % (Manual) 83 (37.0-80.0) Band Neutrophils % (Manual) 8 Lymphocytes % (Manual) 4 (10.0-50.0) Monocytes % (Manual) 4 (0-12) Eosinophils % (Manual) 1 (0-7) Basophils % (Manual) 0 (0.0-2.0) Metamyelocytes % (manual) 0 Myelocytes % (Manual) 0 Promyelocytes % (Manual) 0 Blast Cells % (Manual) 0 Reactive Lymphocytes 0 Platelet Estimate Adequate B-Type Natriuretic Peptide 166.80 pg/mL (0-100) Phenytoin (Dilantin) Level 11.1 ug/mL (10-20) Other Laboratory Tests 12/06/24 06:26 Brief Hx & Hospital Course: 74-year-old female with a history of seizures on Keppra history of DVT in the past hypercholesterolemia came in for shortness of breaths history of CHF BNP is normal during this present admission mild leukocytosis possibly secondary to pneumonia treated with the Levaquin DVT ruled out during this visit by negative Doppler. At the time of discharge patient is afebrile white count is normal on room air discharged home on Levaquin and Ventolin MDI she will continue all her home medications follow up with the Dr. Consults/Reason for consult none Operations or Procedures none Condition at Discharge: Fair Final Diagnosis/Problems List Acute on chronic CHF exacerbation BNP normal Leukocytosis probable due to PNA Levaquin Hyperlipidemia History of DVT DVT bilateral lower extremities ruled out during this visit History of seizures Keppra History of epilepsy Peripheral neuropathy: Gabapentin Discharge Disposition: Home Discharge Instruct/Medications Diet: Cardiac 2g Na,low cholest Activity: Light activity Follow Up/Referral: Continue all your previous home medications Follow up with the primary Dr in one week Medications: Levaquin Ventolin MDI Transmitted to pharmacy 35 (Time taken discharge summary 35 minutes) Discharge Statement: "Patient was advised to return to the ER or call 911 if any headaches, dizziness, shortness of breath, chest pain, abdominal pain, bleeding, fevers, or worsening of medical condition. Patient was counseled about treatment plan, medications, possible side effects, patientverbalized understanding. All questions were answered to the best of my ability. This discharge took greater then 30 minutes in planning, reviewing documentation, counseling the patient, and discussing with other team members." ASSESSMENT ASSESSMENT Hospital Course Improved Assessment Acute on chronic CHF exacerbation BNP normal Leukocytosis probable due to PNA Levaquin Hyperlipidemia History of DVT DVT bilateral lower extremities ruled out during this visit History of seizures Keppra History of epilepsy Peripheral neuropathy: Gabapentin Date of Service: Dec 07, 2024 Billing Provider: ERIK MEADOWS MD Common Visit Codes: 30619-RAR/OBS DISCH DAY >30min ERIK MEADOWS MD Dec 07, 2024 10:20
[2024-12-08] MEDS ORDERED: levoFLOXacin 250MG 50 ML IV SCH (10:00)
== END 2024-12-07 19:00 | disposition home or self-care (01) | DRG 177 ==
LOC: ER 08:22 → OVERFLOW 13:04 → WEST WING 23:51
PROVIDERS: ADMIT Family Medicine; ATTEND Family Medicine
DX: J15.69 Pneumonia due to other Gram-negative bacteria (principal); I50.33 Acute on chronic diastolic (congestive) heart failure; J15.9 Unspecified bacterial pneumonia; E78.5 Hyperlipidemia, unspecified; D72.829 Elevated white blood cell count, unspecified; G40.909 Epilepsy, unspecified, not intractable, without status epilepticus; G62.9 Polyneuropathy, unspecified; Z79.1 Long term (current) use of non-steroidal anti-inflammatories (NSAID); Z86.718 Personal history of other venous thrombosis and embolism; Z83.438 Family history of other disorder of lipoprotein metabolism and other lipidemia; Z86.69 Personal history of other diseases of the nervous system and sense organs; Z82.0 Family history of epilepsy and other diseases of the nervous system; Z88.0 Allergy status to penicillin
CPT/HCPCS: 36415; 71045; 80048; 80053; 80185; 81001; 83880; 85007; 85025; 85027; 87426; 87804; 93005; 93970; 94640; 96365; G0378; J1956

== ENCOUNTER 2025-05-05 21:56 | Emergency (ER) | payer OTHER, MEDICAID ==
[~2025-05-05] VITALS: Ht 152.4 cm; Wt 70.5 kg
[~2025-05-05 21:56] MED LIST changes: +ALBUAER3 IN; +ASCO500T11 PO; -CLIN1CAP70 PO; +LEVO500T91 PO; +MELO7.5T7 PO; -NITR-87 PO; +SIMV20TA20 PO
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
--- NOTE | 2025-05-05 23:17 | DVH ---
CLINICAL INDICATION: pain injury TECHNIQUE: XY R HAND 2 VIEW XRAY, XY R FOREARM XRAY Comparison: XY R FOREARM XRAY on DOS: 05/05/25, XY R KNEE 2V XRAY on DOS: 05/26/24, XY R FEMUR XRAY on D OS: 03/24/24, XY R TIB FIB XRAY on DOS: 03/24/24, XY R KNEE 3V XRAY on DOS: 09/18/23 FINDINGS/IMPRESSION: : Cortical irregularity of the distal radius suggests minimally displaced colles type fracture with int ra-articular extension. No other fractures are identified. Moderate dorsal wrist soft tissue swelling.
[2025-05-06 07:52] VITALS: BP 145/60; PULSE 60; RESP 17; TEMP 98.7; O2SAT 96
== END 2025-05-06 08:21 | disposition home or self-care (01) ==
LOC: EDBD 21:56 → ER 21:56
DX: S52.531A Colles' fracture of right radius, initial encounter for closed fracture (principal); E78.5 Hyperlipidemia, unspecified; Y04.8XXA Assault by other bodily force, initial encounter; Y93.89 Activity, other specified; Y92.89 Other specified places as the place of occurrence of the external cause; Y99.8 Other external cause status; Z79.899 Other long term (current) drug therapy; Z88.0 Allergy status to penicillin; Z79.1 Long term (current) use of non-steroidal anti-inflammatories (NSAID)
CPT/HCPCS: 29125; 73090; 73120